=== PATIENT | female | born 1950 | race Caucasian/White ===

== ENCOUNTER 2024-04-26 12:45 | Outpatient (CLI) | payer MEDICARE, OTHER ==
[~2024-04-26 12:45] MED LIST: GASTROGRAFIN 30 ML BOT ONE; Iopamidol 370 76% 100 ML VIAL ONE
== END 2024-04-26 12:46 | disposition home or self-care (01) ==
LOC: CT 12:45
PROVIDERS: ATTEND Physician Assistant Medical
DX: R19.7 Diarrhea, unspecified (principal); K21.9 Gastro-esophageal reflux disease without esophagitis
CPT/HCPCS: 74177; 82565; Q9963; Q9967